=== PATIENT | male | born 1950 | race Caucasian/White ===

== ENCOUNTER → 2024-12-12 | Outpatient (BNVA) | payer MEDICARE, BC, SELFPAY | END | disposition home or self-care (01) | PROVIDERS: Visit Provider Urology | DX: C61 Malignant neoplasm of prostate (principal); C64.1 Malignant neoplasm of right kidney, except renal pelvis; C64.2 Malignant neoplasm of left kidney, except renal pelvis; N18.30 Chronic kidney disease, stage 3 unspecified | CPT/HCPCS: 81003; 99212; G0463 ==

== ENCOUNTER → 2025-03-13 | Outpatient (BNVA) | payer MEDICARE, BC, SELFPAY | END | disposition home or self-care (01) | PROVIDERS: Visit Provider Urology | DX: C61 Malignant neoplasm of prostate (principal); Z85.528 Personal history of other malignant neoplasm of kidney; N18.4 Chronic kidney disease, stage 4 (severe) | CPT/HCPCS: 81003; 99212; G0463 ==

== ENCOUNTER → 2025-05-01 | Outpatient (BNVA) | payer MEDICARE, BC, SELFPAY | END | disposition home or self-care (01) | PROVIDERS: Visit Provider Urology | DX: N32.89 Other specified disorders of bladder (principal); C64.1 Malignant neoplasm of right kidney, except renal pelvis; Z85.46 Personal history of malignant neoplasm of prostate | CPT/HCPCS: 52000; 81003; 96372; A4217; A4649; C1894; J1580; A9270 ==

== ENCOUNTER → 2025-06-16 | Outpatient (BNVA) | payer MEDICARE, BC, SELFPAY | END | disposition home or self-care (01) | PROVIDERS: Visit Provider Urology | DX: C61 Malignant neoplasm of prostate (principal); C64.1 Malignant neoplasm of right kidney, except renal pelvis; N18.4 Chronic kidney disease, stage 4 (severe); C67.9 Malignant neoplasm of bladder, unspecified | CPT/HCPCS: 81003; 99212; G0463 ==